=== PATIENT | female | born 1960 | race Caucasian/White ===

== ENCOUNTER → 2020-09-20 09:33 | Outpatient (POV) | payer OTHER, SELFPAY | PROVIDERS: Visit Provider Internal Medicine Nephrology | DX: Z00.00 Encounter for general adult medical examination without abnormal findings (principal) ==

== ENCOUNTER → 2021-02-09 08:40 | Outpatient (CLI) | payer BC, SELFPAY | PROVIDERS: PCP Family Medicine; Visit Provider Nurse Practitioner | DX: Z20.822 Contact with and (suspected) exposure to COVID-19 (principal) | CPT/HCPCS: C9803; U0003; U0005 ==

== ENCOUNTER → 2021-05-07 15:08 | Outpatient (CLI) | payer BC, SELFPAY ==
[2021-05-07 16:25] LABS: Adenovirus,PCR Not Detected (NotDetected); Coronavirus 229E Not Detected (NotDetected); Coronavirus NL63 Not Detected (NotDetected); Coronavirus OC43 Not Detected (NotDetected); Coronovirus HKU1,PCR Not Detected (NotDetected); Human Metapneumovirus Not Detected (NotDetected); Influenza A, PCR Not Detected (NotDetected); Influenza AH1, PCR Not Detected (NotDetected); Rhinovirus/Enterovirus Not Detected (NotDetected)
[2021-05-07 16:26] LABS: Bordetella Pertussis Not Detected (NotDetected); Chlamydophila Pneumoniae, PCR Not Detected (NotDetected); Coronavirus 19, PCR Not Detected (NotDetected); Influenza AH1, 2009 Not Detected (NotDetected); Influenza AH3,PCR Not Detected (NotDetected); Influenza B, PCR Not Detected (NotDetected); Mycoplasma Pneumoniae, PCR Not Detected (NotDetected); Parainfluenza 1, PCR Not Detected (NotDetected); Parainfluenza 3, PCR Not Detected (NotDetected); Parainfluenza 4, PCR Not Detected (NotDetected); Respiratory Syncytial Virus Not Detected (NotDetected)
[2021-05-07 16:35] LABS: Basophils # 0.1 K/mm3 (0-0.2); Basophils % 1.8 % (0.1-2.0); Eosinophils # 0.2 K/mm3 (0.0-0.4); Eosinophils % 2.6 % (0.1-12.0); Hematocrit 34.9 % (37.0-47.0); Hemoglobin 11.2 g/dL (12.2-16.2); Lymphocytes # 1.3 K/mm3 (0.7-4.5); Lymphocytes % 19.9 % (10-50); Mean Corpuscular Hemoglobin 29.7 pg (27.0-31.2); Mean Corpuscular Volume 92.5 fl (81-99); Mean Platelet Volume 8.3 fl (7.4-10.4); Monocytes # 0.3 K/mm3 (0.1-1.0); Monocytes % 3.7 % (1.7-9.3); Neutrophils # 4.9 K/mm3 (1.8-7.8); Platelet Count 351 K/mm3 (142-424); Red Blood Count 3.77 M/mm3 (4.20-5.40); Red Cell Distribution Width 13.9 % (11.5-17.5); White Blood Count 6.8 K/mm3 (4.8-10.8)
[2021-05-07 19:20] LABS: Parainfluenza 2, PCR Detected (NotDetected)
== END ==
PROVIDERS: PCP Family Medicine; Visit Provider Family Medicine
DX: Z20.822 Contact with and (suspected) exposure to COVID-19 (principal); J11.1 Influenza due to unidentified influenza virus with other respiratory manifestations
CPT/HCPCS: 36415; 85025; 87581; 87632; 87798; C9803; U0003; U0005

== ENCOUNTER 2022-03-03 18:52 | Emergency (ER) | payer BC, SELFPAY ==
[2022-03-03 18:54] VITALS: BP 131/67; PULSE 95; RESP 16; TEMP 37.2; O2SAT 97; BMI 42.3
[2022-03-03 21:53] VITALS: BP 0/0; PULSE 0; RESP 0; TEMP -17.7; TEMP 0
== END 2022-03-03 21:55 | disposition left against medical advice (07) ==
LOC: ER 20:40
PROVIDERS: Emergency Provider Emergency Medicine; PCP Family Medicine
DX: M79.605 Pain in left leg (principal); Z53.21 Procedure and treatment not carried out due to patient leaving prior to being seen by health care provider
CPT/HCPCS: 99211

== ENCOUNTER → 2022-05-21 13:19 | Outpatient (CLI) | payer BC, SELFPAY ==
--- NOTE | 2022-05-21 13:23 | MM_ITS ---
PROCEDURE INFORMATION: Exam: Bilateral Screening 3D Mammography Exam date and time: 05/21/2022 1:26 PM Age: 62 years old Clinical indication: Screening examination; Additional info: Baseline screening . History of prior right breast surgery TECHNIQUE: Imaging protocol: Bilateral Screening tomosynthesis and 2D mammography including computer-aided detection (CAD) when performed. COMPARISON: No relevant prior studies available. FINDINGS: MAMMOGRAPHY: Breast composition: The breasts are heterogeneously dense, which may obscure small masses. Mass: Partially obscured 1.0 cm lobulated mass in the outer right breast, anterior depth, best seen on CC frame 18. Partially obscured 0.8 cm mass in the outer left breast, posterior depth, best seen on CC frame 21. Architectural distortion: Questionable area of architectural distortion in the outer right breast, posterior depth, best seen on CC frame 35. Additional questionable area of architectural distortion in the medial right breast, best seen on CC frame 14. These findings could be related to patient's history of prior right breast surgery versus summation artifact. Calcifications: No suspicious calcifications. Asymmetric density: None. Skin thickening: None. Axillary adenopathy: None. IMPRESSION: 1. Recommend right breast spot compression CC/MLO view, full field exaggerated CC lateral view and ultrasound for further evaluation of 3 questionable findings in the right breast: 1) partially obscured lobulated mass in the anterior outer right breast, best seen on CC projection; 2) questionable subtle area of architectural distortion in the anterior inner right breast; and 3) questionable architectural distortion in the posterior outer right breast. These findings could be related to postsurgical scarring however priors are not available for comparison. 2. Recommend left breast spot compression CC/MLO view and ultrasound for further evaluation of a partially obscured 0.8 cm mass in the posterior outer left breast, best seen on CC projection. Of note, patient reports having prior mammograms. Every attempt should be made to obtain prior mammograms for comparison. If/when these prior exams become available for comparison, an addendum will be made, if necessary. ASSESSMENT: BI-RADS Category 0: Incomplete- Need Additional Imaging Evaluation and/or Prior Mammograms for Comparison
== END ==
PROVIDERS: PCP Family Medicine; Visit Provider Family Medicine
DX: Z12.31 Encounter for screening mammogram for malignant neoplasm of breast (principal)
CPT/HCPCS: 77063; 77067

== ENCOUNTER → 2022-06-06 13:46 | Outpatient (CLI) | payer BC, SELFPAY ==
--- NOTE | 2022-06-06 13:51 | MM_ITS ---
PROCEDURE INFORMATION: Exam: US Left Breast, Complete US Right Breast, Complete, Abscess Evaluation MG Bilateral Diagnostic Breast Tomosynthesis Exam date and time: 06/06/2022 1:57 PM Age: 62 years old Clinical indication: Recall on the basis of screening mammogram 05/21/2022 for on the right, partially obscured mass in the outer breast anterior depth and possible architectural distortion in the outer breast posterior depth and medial breast; as well as 4 partially obscured mass in the left outer breast. TECHNIQUE: Imaging protocol: Complete ultrasound of all four quadrants of the Left breast and the retroareolar regions, including ultrasound of the axilla when performed. Right Ultrasound of the breast with image documentation. All quadrants and retroareolar regions evaluated. Exam focused on the search and evaluation for abscess. Exam is an emergent request and a non-BIRADS study. Bilateral Diagnostic tomosynthesis and 2D mammography including computer-aided detection (CAD) when performed. Unilateral or bilateral exam. COMPARISON: MG MM DIG SCREENING MAMM BI W/CAD 05/21/2022 1:26 PM FINDINGS: MAMMOGRAPHY: Additional images on the right show persistent 1.0 cm circumscribed mass/asymmetry in the outer breast posterior depth and no definite persisting architectural distortion in the outer breast posterior depth or medial breast. Additional images on the left show no persistent mass in the outer left breast. ULTRASOUND: Bilateral sonography, all 4 quadrants, retroareolar and axilla. On the right, at 9 o'clock 4 cm from the nipple, oval hypoechoic avascular mass measuring 0.6 x 0.6 x 0.9 cm which corresponds to the mammographic persistent 1.0 cm circumscribed mass/asymmetry in the outer breast posterior depth. Also, at 9 o'clock 3 cm from the nipple, simple cyst measuring 0.5 x 0.5 by 0.7 cm. No other sonographic findings demonstrated. Sonographically unremarkable right axillary lymph node. On the left, at 12 o'clock 3 cm from the nipple, a probable cyst measuring 0.2 by 0.2 x 0.2 cm, too small to characterize fully. At 2 o'clock 3 cm from the nipple, probably deep cyst, may be complicated with low-level echoes measuring 0.8 by 0.8 x 0.3 cm probably corresponds to the mammographic partially obscured mass which effaced in the outer left breast. No other sonographic findings. Sonographically unremarkable left axillary lymph node. IMPRESSION: Suggest six-month follow-up bilateral diagnostic mammogram and targeted bilateral sonography for probably benign masses on the right at 9 o'clock and on the left at 12 o'clock and 2 o'clock, unless otherwise clinically indicated. ASSESSMENT: BI-RADS Category 3: Probably benign
== END ==
PROVIDERS: PCP Family Medicine; Visit Provider Family Medicine
DX: R92.8 Other abnormal and inconclusive findings on diagnostic imaging of breast (principal)
CPT/HCPCS: 76641; 77062; 77066; G0279

== ENCOUNTER → 2022-12-24 12:17 | Outpatient (CLI) | payer BC, SELFPAY ==
--- NOTE | 2022-12-24 12:21 | XR_ITS ---
FINAL REPORT CLINICAL HISTORY: LT KNEE pain FINDINGS: 3 views of the left knee were obtained. There is no acute fracture or dislocation. There are mild degenerative changes. There is no soft tissue abnormality. IMPRESSION: No acute process. Reviewed, Interpreted and Dictated by Brendan Marcano III, MD Transcribed by Khoa Foster Authenticated and [facility]
== END ==
PROVIDERS: PCP Family Medicine; Visit Provider Family Medicine
DX: M25.562 Pain in left knee (principal)
CPT/HCPCS: 73562

== ENCOUNTER → 2023-01-01 11:03 | Outpatient (CLI) | payer OTHER, SELFPAY ==
--- NOTE | 2023-01-01 11:10 | MR_ITS ---
FINAL REPORT CLINICAL HISTORY: LEFT LATERAL KNEE PAIN FINDINGS: Multiplanar MR imaging of the right knee was performed without contrast. Motion artifact is identified on many of the images. There is a possible small tear of the posterior horn of the medial meniscus versus artifact. The lateral meniscus is intact. The anterior and posterior cruciate ligaments are intact. The medial collateral ligament and lateral ligamentous complex are intact. The patellar and quadriceps tendons are intact. There is no evidence of fracture. There is severe patellar chondromalacia with several subchondral cyst. Small joint effusion is seen. The musculature is intact. No soft tissue mass or cyst is identified. IMPRESSION: Possible small tear posterior horn medial meniscus versus artifact. Severe patellar chondromalacia. Reviewed, Interpreted and Dictated by Brendan Marcano III, MD Transcribed by Janeth Ge Authenticated and [facility]
== END ==
PROVIDERS: PCP Family Medicine; Visit Provider Family Medicine
DX: M25.562 Pain in left knee (principal); M25.462 Effusion, left knee; S83.207A Unspecified tear of unspecified meniscus, current injury, left knee, initial encounter
CPT/HCPCS: 73721

== ENCOUNTER → 2023-04-14 09:50 | Outpatient (POV) | payer MEDICARE, SELFPAY ==
--- NOTE | 2023-04-14 10:36 | EXP.PAIN.OV ---
HPI Data of Consult Patient: new to practice Consult date: 04/14/23 Requesting Physician: Nereida Villeda APRN Primary Care Provider: Sarmad Ruiz MD Consult Narrative Reason for consult: Left knee pain History of present illness: Ms. Elaine is a 62 year old female who presents today as a new patient. She is a referral from Walker Villeda's office. Today she rates her pain a 9 out of 10. Patient states her pain is all in her left knee. Patient describes this as a sharp shooting pain that is worse with standing or sitting. Patient states it did all start around December of this year when she was trying to get into a truck and twisted her knee funny. Patient states she immediately had sharp shooting pain and difficulty with ambulating. She states she did go for evaluation and did see Dr. Villeda who stated she had severe arthritis along with a meniscus tear. Patient states that he did try a intra-articular injection however it only provided minimal relief and only lasted 2 weeks. Patient states that he did want her to come to our office and try a different type injection. She stated that at this time he was not recommending surgical intervention. Patient has tried [id number] Tylenol and ibuprofen with minimal relief. Patient denies any previous surgery. Patient has also been prescribed prescription Celebrex and been on it for 2 weeks however she states she has not noticed any additional improvement. Patient is not on any scheduled medications. Patient does state that she is moving to [place] in 2 weeks. Her Shalom has been reviewed and is appropriate. CC: Nereida Villeda APRN [facility] Disclaimer: The information contained in this section may have been updated after the patient was seen, as this information can be updated by other users. Social History Smoking Status: Never smoker alcohol intake: never substance use type: denies use current occupational status: employed Travel in the last 8 weeks: None caffeine: No Review of Systems Review of Systems Review of systems:: pertinent systems reviewed and negative unless documented below Review of systems (narrative): Review of Systems: General: No recent weight changes, no fever, no sleep disturbances Respiratory: No cough, no shortness of air, no recurring pulmonary infections Cardiovascular/peripheral vascular: No chest pain, no palpitations, no edema, no shortness of breath Gastrointestinal: No new onset incontinence, normal bowel movements reported Genitourinary: No new onset incontinence Musculoskeletal: Left knee pain Psychiatric: [Normal mood/affect] Neurological: [Denies weakness in extremities], [denies balance issues] Meds Home Medications and Allergies Home Medications Medication Instructions Recorded Confirmed Type levothyroxine 75 mcg tablet 75 mcg PO DAILY thyroid 07/10/18 03/27/23 History (Synthroid) ropinirole 1 mg tablet (Requip) 1 mg PO QHS RLS 07/10/18 03/27/23 History celecoxib 200 mg capsule (Celebrex) 200 mg PO DAILY knee oa #30 caps 03/27/23 03/27/23 Rx New Prescriptions to Start Prescriptions: Allergies Allergy/AdvReac Type Severity Reaction Status Date / Time No Known Drug Allergies Allergy Unknown Verified 03/27/23 13:50 [NKDA] Objective Narrative: Physical Exam: General: Alert and oriented x3, no acute distress, pleasant and cooperative Lungs: Respirations even and unlabored, symmetrical chest expansion Eyes: PERRL Musculoskeletal: Flexion and extension of left knee somewhat guarded secondary to pain, [antalgic gait noted] Neurological: Speech clear, no gross sensory deficit Additional findings Additional findings: FINDINGS: Multiplanar MR imaging of the right knee was performed without contrast. Motion artifact is identified on many of the images. There is a possible small tear of the posterior horn of the medial meniscus versus artifact. T
[2023-04-14 11:24] VITALS: BP 134/67; PULSE 86; RESP 18; O2SAT 95; BMI 42.0
== END ==
PROVIDERS: PCP Family Medicine; Visit Provider Nurse Practitioner Family
DX: S83.242D Other tear of medial meniscus, current injury, left knee, subsequent encounter (principal); M25.562 Pain in left knee
CPT/HCPCS: 99202; G0463

== ENCOUNTER 2023-05-02 09:38 | Day surgery (SDC) | payer MEDICARE, SELFPAY ==
[2023-05-02 10:10] VITALS: BP 172/74; PULSE 86; O2SAT 97
[2023-05-02 10:11] VITALS: BP 168/85; PULSE 88; RESP 16; TEMP 36.2; O2SAT 98; BMI 42.0
[2023-05-02 10:12] VITALS: BP 172/74; PULSE 87; O2SAT 96
[2023-05-02 10:18] VITALS: BP 150/68; PULSE 81; RESP 16; O2SAT 98
--- NOTE | 2023-05-02 10:49 | EXP.PAIN.PRO ---
Procedure Date: 05/02/23 Time: 10:00 Anesthesiologist:: Savage Magdaleno CRNA Complications:: None Pre-procedure Diagnosis:: DJD left knee. Chronic left knee pain. Post-procedure Diagnosis:: Same. Indications for Procedure:: Patient is a pleasant 63-year-old female comes our clinic today for a left trigger point injections of the left knee as well as intra-articular cortisone. Patient has chronic knee pain she describes as constant, dull, aching. Patient has been told by orthopedics she has chronic osteoarthritis left knee including meniscus tear. Patient has been informed by orthopedics she needs total knee replacement. However, patient wanting to try nonsurgical options. Procedure Details:: Details of the procedure explained the patient. Patient taken procedure and placed in the sitting position. The area of the left knee was cleansed using chlorhexidine's cleansing solution. The left knee was accessed with ease using a 25-gauge 3-1/2 inch needle. After negative aspiration 40 mg of Depo-Medrol +3 cc of 1% lidocaine and 3 cc of 0.25% Marcaine was injected. The left inferior genicular nerve was also blocked with 3 cc of 1% lidocaine. Patient tolerated procedure without difficulty. There are no complications. Plan and Disposition:: Patient tolerated procedure without difficulty. No complications. I did discuss in detail with the patient regarding genicular nerve block might be possible if in fact the intra-articular injection does not provide significant relief.
== END 2023-05-02 10:18 | disposition home or self-care (01) ==
PROVIDERS: PCP Family Medicine; Visit Provider Nurse Anesthetist, Certified Registered
DX: M17.12 Unilateral primary osteoarthritis, left knee (principal); M25.562 Pain in left knee; G89.29 Other chronic pain
CPT/HCPCS: 20610; 64454; J1040

== ENCOUNTER → 2023-05-20 13:14 | Outpatient (POV) | payer MEDICARE, SELFPAY ==
[2023-05-20 13:29] VITALS: BP 147/86; PULSE 95; RESP 18; O2SAT 98; BMI 42.0
--- NOTE | 2023-05-20 13:43 | EXP.PAIN.SOA ---
[facility] Pain Management SOAP Note Subjective:: Patient is a very pleasant 63-year-old female comes our clinic today for follow-up visit after receiving left intra-articular knee injection. Patient reports 10 to 12 days of significant improvement terms of her overall left knee pain. However, her pain is returned essentially in its entirety. She describes the left knee pain as constant, dull, aching, sharp, stabbing. Patient reports having difficulty ambulating due to left knee pain severity. Patient has had 2 intra-articular cortisone shots in the left knee. Patient has been told by orthopedic surgery needs total knee replacement would be her very last option. I discussed in detail with the patient regarding left genicular nerve block with subsequent genicular ablation if in fact necessary. She wishes to proceed. Patient continues taking Celebrex daily. Her Shalom #[id number] is been reviewed and appropriate. Objective:: Patient is awake alert [place] x 3. No acute distress. Flexion-extension cervical lumbar spine normal. Deep tendon reflexes upper and lower extremities normal. Motor strength upper and lower extremities normal. There is no gross sensory deficit. Gait is normal. Assessment:: DJD left knee. Chronic left knee pain. Plan:: We will plan for left knee genicular nerve block. Patient has tried and failed NSAIDs, intra-articular cortisone, physical therapy, home exercise program. [facility] Disclaimer: The information contained in this section may have been updated after the patient was seen, as this information can be updated by other users. Medical History Hypothyroidism Osteoarthritis, knee Restless leg syndrome Family History Other Unknown family medical history Social History Smoking Status: Never smoker alcohol intake: never substance use type: denies use current occupational status: unemployed Travel in the last 8 weeks: None caffeine: No
== END ==
LOC: SC.PAIN 13:15
PROVIDERS: Visit Provider Nurse Anesthetist, Certified Registered
DX: M17.12 Unilateral primary osteoarthritis, left knee (principal); M25.562 Pain in left knee; G89.29 Other chronic pain
CPT/HCPCS: 99212; G0463

== ENCOUNTER 2023-06-24 10:59 | Day surgery (SDC) | payer MEDICARE, SELFPAY ==
[2023-06-24 11:20] VITALS: BP 169/105; PULSE 107; RESP 18; TEMP 36.4; O2SAT 97; BMI 42.0
[2023-06-24 11:22] VITALS: BP 144/69; PULSE 97; RESP 18; O2SAT 97; O2SAT 98
[2023-06-24] MEDS: methylPREDNISolone ACETATE 80MG/ML VIAL 80 MG (11:24)
[2023-06-24] MEDS: BUPIVACAINE 0.25% 10ML INJ 25 MG IJ (11:25)
[2023-06-24] MEDS: LIDOCAINE 1% 5ML PF VIAL 5 ML (11:25)
[2023-06-24 11:33] VITALS: BP 158/63; PULSE 89; RESP 18; O2SAT 97
--- NOTE | 2023-06-24 11:40 | EXP.PAIN.PRO ---
Procedure Date: 06/24/23 Time: 11:30 Anesthesiologist:: Savage Magdaleno CRNA Complications:: None Pre-procedure Diagnosis:: Chronic left knee pain. Small meniscus tear left knee. Arthritis left knee. Post-procedure Diagnosis:: Same. Indications for Procedure:: Patient is a very pleasant 63-year-old female comes our clinic today for trigger point injections of the distal medial and lateral quadriceps tendon and the proximal patellar tendon. Patient has had intra-articular injections at the knee with minimal to no relief. Procedure Details:: Details of the procedure explained the patient. The patient taken procedure room placed in the sitting position. The area over the knee was cleansed using chlorhexidine as a cleansing solution. Using a 25-gauge inch and half needle the distal quadriceps tendon medial and laterally was injected with 5 cc of solution containing 1% lidocaine, 0.25% Marcaine and 40 mg of Depo-Medrol. The proximal patellar tendon was also injected with 5 cc of the same solution. Patient tolerated procedure without difficulty. No complications. Plan and Disposition:: I discussed in detail with the patient regarding orthopedic surgery referral. Patient lives in [facility]. I have given her the name of [place] [facility] in [place]. Specifically, I asked her to request Walker Nam for Ortho evaluation.
== END 2023-06-24 11:33 | disposition home or self-care (01) ==
PROVIDERS: Visit Provider Nurse Anesthetist, Certified Registered
DX: M17.12 Unilateral primary osteoarthritis, left knee (principal); S83.207D Unspecified tear of unspecified meniscus, current injury, left knee, subsequent encounter; M25.562 Pain in left knee; G89.29 Other chronic pain
CPT/HCPCS: 20551; J1040

== ENCOUNTER → 2023-07-11 13:16 | Outpatient (POV) | payer MEDICARE, SELFPAY ==
[2023-07-11 13:38] VITALS: BP 139/73; PULSE 98; RESP 20; O2SAT 95; BMI 42.0
--- NOTE | 2023-07-11 13:58 | A.OFFVIS_ITS ---
[facility] Pain Management SOAP Note Subjective:: Patient is a pleasant 63-year-old female who presents today for follow-up of trigger point injections of her left knee on 06/24/2023. We are currently treating the patient for left knee osteoarthritis: Left knee pain, left knee meniscus tear. Patient rates her pain today at a 5 out of 10. Patient denies any new trauma or injury. She states that she did not notice any improvement following this injection. Patient describes her pain as an aching, throbbing sensation that is worse with increased activity or ambulation. Patient states the pain interferes with her ability perform activities of daily living such as cooking and cleaning. Patient did previously have a intra-articular knee injection done in the past that did provide 100% relief lasting approximately 2 weeks. Patient states she is interested in repeating this procedure if possible. Her Shalom has been reviewed and is appropriate. Review of Systems: General: No recent weight changes, no fever, no sleep disturbances Respiratory: No cough, no shortness of air, no recurring pulmonary infections Cardiovascular/peripheral vascular: No chest pain, no palpitations, no edema, no shortness of breath Gastrointestinal: No new onset incontinence, normal bowel movements reported Genitourinary: No new onset incontinence Musculoskeletal: Left knee pain Psychiatric: [Normal mood/affect] Neurological: [Denies weakness in extremities], [denies balance issues] Objective:: Physical Exam: General: Alert and oriented x3, no acute distress, pleasant and cooperative Lungs: Respirations even and unlabored, symmetrical chest expansion Eyes: PERRL Musculoskeletal: Flexion and extension of left knee somewhat guarded secondary to pain, [antalgic gait noted] Neurological: Speech clear, no gross sensory deficit Assessment:: Osteoarthritis left knee, left knee pain, left knee meniscus tear Plan:: Patient continues to experience significant pain in her left knee with limited range of motion. I have discussed with the patient that she may benefit from repeat intra-articular left knee injection. Risk and benefits were discussed with the patient and she would like to proceed forward with this plan of care. Patient had previously had a intra-articular knee injection that did provide 100% improvement lasting 2 weeks. I will also order the patient a compounded cream. Patient will be scheduled for a left knee intra-articular injection. Patient has been instructed to contact the clinic with any concerns before the next appointment. Dr. Marsh has reviewed this note and agrees with this plan of care. This note was dictated using voice recognition software and make contain errors or omissions. [facility] Disclaimer: The information contained in this section may have been updated after the patient was seen, as this information can be updated by other users. Medical History Hypothyroidism Osteoarthritis, knee Restless leg syndrome Family History Other Unknown family medical history Social History Smoking Status: Never smoker alcohol intake: never substance use type: denies use current occupational status: other Travel in the last 8 weeks: None caffeine: No
== END ==
LOC: SC.PAIN 13:17
PROVIDERS: PCP Family Medicine; Visit Provider Nurse Practitioner Family
DX: M17.12 Unilateral primary osteoarthritis, left knee (principal); M25.562 Pain in left knee; M23.207 Derangement of unspecified meniscus due to old tear or injury, left knee
CPT/HCPCS: 99212; G0463

== ENCOUNTER 2023-08-05 10:47 | Day surgery (SDC) | payer MEDICARE, SELFPAY ==
[2023-08-05 11:06] VITALS: BP 194/88; PULSE 93; RESP 18; TEMP 36.5; O2SAT 99; BMI 42.0
[2023-08-05 11:12] VITALS: BP 176/52; PULSE 86; RESP 18; O2SAT 96
[2023-08-05] MEDS: BUPIVACAINE 0.25% 10ML INJ 25 MG IJ (11:12)
[2023-08-05] MEDS: LIDOCAINE 1% 5ML PF VIAL 5 ML (11:12)
[2023-08-05] MEDS: methylPREDNISolone ACETATE 80MG/ML VIAL 80 MG (11:12)
[2023-08-05 11:13] VITALS: BP 176/52; PULSE 86; RESP 18; O2SAT 96
[2023-08-05 11:20] VITALS: BP 153/71; PULSE 87; RESP 18; O2SAT 99
--- NOTE | 2023-08-05 11:34 | P.PCN_ITS ---
Procedure Date: 08/05/23 Time: 11:05 Anesthesiologist:: Savage Magdaleno CRNA Complications:: None Pre-procedure Diagnosis:: DJD left knee. Chronic left knee pain. Post-procedure Diagnosis:: Same. Indications for Procedure:: Patient is a very pleasant 63-year-old female comes our clinic today for repeat left intra-articular knee injection. Patient reporting 2 weeks significant improvement terms of her overall left knee pain with her previous injection. She describes knee pain as constant, dull, aching. Ambulation intensifies pain to some degree. Flexion-extension intensifies pain as well. Patient asking for orthopedic referral in the [facility] where she lives. I think this is reasonable given the fact the intra-articular injections are not making a significant difference. I recommend to her [place] [facility] on [facility] in [place]. Procedure Details:: Procedure Details: Left intra-articular knee injection Informed consent was obtained risk and benefits of the procedure were explained to the patient. Patient was taken the procedure room left knee was prepped using ChloraPrep. A 25-gauge needle was used to inject 10 mL bupivacaine 0.25% and Depo-Medrol 40 mg into each knee. We did a total of 80 mg Depo-Medrol for both knees. The patient tolerated the procedure well with no complications. Plan and Disposition:: Patient was discharged without incident.
== END 2023-08-05 11:20 | disposition home or self-care (01) ==
PROVIDERS: PCP Family Medicine; Visit Provider Nurse Anesthetist, Certified Registered
DX: M17.12 Unilateral primary osteoarthritis, left knee (principal); M25.562 Pain in left knee; G89.29 Other chronic pain
CPT/HCPCS: 20610; J1040

== ENCOUNTER 2023-08-27 13:57 | Outpatient (POV) | payer MEDICARE, SELFPAY ==
[2023-08-27 13:58] VITALS: BP 153/60; PULSE 84; RESP 18; TEMP 36.9; O2SAT 95; BMI 42.0
--- NOTE | 2023-08-27 15:58 | EXP.PAIN.SOA ---
[facility] Pain Management SOAP Note Subjective:: Patient is a pleasant 63-year-old female who presents today for follow-up of left intra-articular injection on 08/05/2023. Patient rates her pain today a 2 out of 10 on the left knee and a 15 out of 10 on the right knee. Patient states that she has had at least 50% improvement following this injection and feels like it is still continuing to provide additional relief. Patient does state that today most of her pain is related to her right knee. Patient denies any new trauma or injury. She states that it is causing a constant sharp shooting pain in her knee that is worse with increased activity or ambulation. Patient states that it feels very much like how her left knee felt with the meniscus tear. Patient states that she has not had any prior surgery on this side. She states the pain does interfere with her ability to perform activities of daily living such as cooking and cleaning. She is interested in any help we may be able to provide. Her Shalom has been reviewed and is appropriate. Review of Systems: General: No recent weight changes, no fever, no sleep disturbances Respiratory: No cough, no shortness of air, no recurring pulmonary infections Cardiovascular/peripheral vascular: No chest pain, no palpitations, no edema, no shortness of breath Gastrointestinal: No new onset incontinence, normal bowel movements reported Genitourinary: No new onset incontinence Musculoskeletal: Right knee pain Psychiatric: [Normal mood/affect] Neurological: [Denies weakness in extremities], [denies balance issues] Objective:: Physical Exam: General: Alert and oriented x3, no acute distress, pleasant and cooperative Lungs: Respirations even and unlabored, symmetrical chest expansion Eyes: PERRL Musculoskeletal: Flexion and extension of right knee somewhat guarded secondary to pain, [antalgic gait noted] Neurological: Speech clear, no gross sensory deficit Assessment:: Osteoarthritis left knee, bilateral knee pain, left knee meniscus tear Plan:: Patient is experiencing worsening pain in her right knee with limited range of motion. I will order x-ray imaging as well as MRI without contrast of her right knee. Patient is currently living in [place] and would like the advanced imaging ordered at a location that year. I have also discussed with the patient due to some of her pain may be related to the arthritis that she may benefit from a daily medication for anti-inflammation. Patient denies any heart or kidney issues. We will send in a prescription of Celebrex 100 mg twice a day and provide a 2-week supply of this medication. Patient has been counseled to contact our office if this does provide additional relief for additional refills. Patient was told to discontinue all other NSAIDs while taking this medication and to take it with food to minimize GI upset. Patient acknowledges understanding of this. Patient was also discussed that she may benefit from an intra-articular knee injection. Risk and benefits were discussed with patient and she would like to proceed forward with this plan of care. We will schedule the patient for a right intra-articular knee injection. Patient has been instructed to contact the clinic with any concerns before the next appointment. Dr. Marsh has reviewed this note and agrees with this plan of care. This note was dictated using voice recognition software and make contain errors or omissions. [facility] Disclaimer: The information contained in this section may have been updated after the patient was seen, as this information can be updated by other users. Medical History Hypothyroidism Restless leg syndrome Osteoarthritis, knee Family History Other Unknown family medical history Social History Smoking Status: Never smoker alcohol intake: never substance use type: denies use current occupational status: retired Travel in the last 8 weeks: None caffeine: No
--- NOTE | 2023-08-27 16:12 | XR_ITS ---
PROCEDURE INFORMATION: Exam: XR Right Knee Exam date and time: 08/27/2023 4:15 PM Age: 63 years old Clinical indication: Pain; Knee; Right; Additional info: Right knee pain TECHNIQUE: Imaging protocol: Radiologic exam of the right knee. Views: 3 views. COMPARISON: No relevant prior studies available. FINDINGS: Bones/joints: Normal. No fracture evident Soft tissues: Normal. IMPRESSION: No acute findings.
== END 2023-08-27 23:59 | disposition home or self-care (01) ==
PROVIDERS: PCP Family Medicine; Visit Provider Nurse Practitioner Family
DX: M17.12 Unilateral primary osteoarthritis, left knee (principal); M25.561 Pain in right knee; M25.562 Pain in left knee; S83.207D Unspecified tear of unspecified meniscus, current injury, left knee, subsequent encounter
CPT/HCPCS: 73562; 99212; G0463

== ENCOUNTER 2023-09-12 12:53 | Outpatient (CLI) | payer MEDICARE, SELFPAY ==
--- NOTE | 2023-09-12 12:58 | MR_ITS ---
FINAL REPORT CLINICAL HISTORY: RIGHT KNEE PAIN COMPARISON: 01/01/2023 FINDINGS: Multi planar MR imaging was performed of the right knee. The anterior and posterior cruciate ligaments are intact. The quadriceps and patellar tendons are intact. There is again noted to be minimal signal in the posterior horn of the medial meniscus which may represent a subtle, minimal tear. This is well-seen on image 17 of series 4 and appears similar to the prior exam. The medial and lateral collateral ligaments appear intact. The medial and lateral retinacula appear intact. There is a small joint effusion. There is an osteochondral lesion along the undersurface of the patella measuring 9 mm. IMPRESSION: Redemonstration of a questionable tear of the posterior horn of the medial meniscus. 9 mm osteochondral lesion. Reviewed, Interpreted and Dictated by Stephan Gu MD Transcribed by Kayce Hardy Authenticated and [facility]
== END 2023-09-12 23:59 | disposition home or self-care (01) ==
LOC: RAD 12:54
PROVIDERS: PCP Family Medicine; Visit Provider Nurse Practitioner Family
DX: M25.561 Pain in right knee (principal)
CPT/HCPCS: 73721

== ENCOUNTER 2023-10-30 17:43 | Observation (INO) | payer MEDICARE, SELFPAY ==
[2023-10-30 17:43] VITALS: BP 141/56; PULSE 104; RESP 15; TEMP 37.5; O2SAT 95; BMI 42.0
--- NOTE | 2023-10-30 17:53 | XR_ITS ---
PROCEDURE INFORMATION: Exam: XR Right Knee Exam date and time: 10/30/2023 6:07 PM Age: 63 years old Clinical indication: Injury or trauma; Fall; Swelling (edema); Knee; Bilateral TECHNIQUE: Imaging protocol: Radiologic exam of the right knee. Views: 3 views. COMPARISON: No relevant prior studies available. FINDINGS: Bones/joints: Multiple views were obtained. The osseous structures appear intact with no evidence of acute fracture, dislocation, or malalignment. Degenerative changes are noted, consistent with age-related wear and tear. Joint spaces are generally preserved. No abnormal bone density or destructive lesions are noted. Soft tissues: Soft tissue swelling is observed, warranting further clinical correlation. IMPRESSION: At the time of imaging, the skeletal radiograph demonstrates no acute osseous abnormalities but shows signs of degenerative changes and soft tissue swelling.
--- NOTE | 2023-10-30 17:53 | XR_ITS ---
PROCEDURE INFORMATION: Exam: XR Left Hand Exam date and time: 10/30/2023 6:07 PM Age: 63 years old Clinical indication: Injury or trauma; Fall; Wound; Left; Little finger; Additional info: L volar 5th mcp trauma and laceration TECHNIQUE: Imaging protocol: Radiologic exam of the left hand. Views: 3 or more views. COMPARISON: No relevant prior studies available. FINDINGS: Bones/joints: No acute osseous injury is identified. Soft tissues: There is a tiny radiopaque density projecting in the soft tissues of the 4th interspace, correlate for any debris. There is mild soft tissue swelling. IMPRESSION: 1. There is a tiny radiopaque density projecting in the soft tissues of the 4th interspace, correlate for any debris. 2. No acute osseous injury.
--- NOTE | 2023-10-30 17:54 | XR_ITS ---
PROCEDURE INFORMATION: Exam: XR Left Knee Exam date and time: 10/30/2023 6:07 PM Age: 63 years old Clinical indication: Injury or trauma; Fall; Swelling (edema); Knee; Bilateral TECHNIQUE: Imaging protocol: Radiologic exam of the left knee. Views: 3 views. COMPARISON: MR KNEE LT WO CON 09/12/2023 12:54 PM FINDINGS: Bones/joints: There is tricompartmental osteoarthritis of the knee with loss of joint space, subchondral sclerosis, and productive changes. The osseous structures are intact, with no signs of acute fracture, dislocation, or malalignment. There is no evidence of abnormal bone density or destructive lesions. Soft tissues: The soft tissues appear within normal limits. IMPRESSION: At the time of imaging, the study shows no acute osseous abnormalities but does reveal signs of tricompartmental osteoarthritis.
--- NOTE | 2023-10-30 17:59 | ED_ITS ---
Discharge Plan Disposition Patient Disposition: Home, Self-Care Prescriptions Prescriptions: New cephalexin 500 mg capsule 500 mg PO BID 5 Days Qty: 10 0RF No Action levothyroxine [Synthroid] 75 mcg tablet 75 mcg PO DAILY ropinirole [Requip] 1 mg tablet 1 mg PO QHS celecoxib [Celebrex] 200 mg capsule 200 mg PO DAILY Qty: 30 2RF celecoxib [Celebrex] 100 mg capsule 100 mg PO BID Qty: 60 0RF celecoxib 100 mg capsule 100 mg PO BID Qty: 60 0RF Referrals Follow up/Referrals: Darin Villeda DO [Staff Physician] - See instructions Provider,Referral, [Primary Care Provider] - See instructions Activity Restrictions/Add. Instructions Additional Instructions/Restrictions: At this time is felt you are safe to be discharged home. If new or worsening symptoms please do not hesitate to return the emergency department. Please take antibiotics as prescribed and call and schedule appointment with Dr. Villeda for your knee pain as well as to evaluate your laceration. Your sutures will be able to come out in approximately 12 days. For optimal scar healing use vitamin E lotion. Just because your x-rays did not show any fracture does not mean you do not have any damage to the ligaments or meniscus in your knee. Please bear weight as tolerated until you see Dr. Villeda and use your knee immobilizer intermittently and walker at home as discussed. Please range her knee without bearing significant weight multiple times a day to prevent blood clot formation. For pain please take Tylenol and ibuprofen as needed. Clinical Impressions Clinical Impression: Bilateral knee pain, Fall, Laceration of left palm, Paresthesia of finger Discharge ED Provider: Baljeet Moses General Adult HPI <Baljeet Moses MD - Last Filed: 10/30/23 20:23> General Chief complaint: Fall Stated complaint: fall Time Seen by Provider: 10/30/23 17:45 Mode of Arrival: EMS Source of Information: Patient and EMS Limitations: No Limitations Description of Symptoms (Recalled from ER Triage Doc. by RN): pt reports she was walking, tripped over a screw that was sticking up out of the concrete. pt has bilateral knee pain, right worse than left. pt does have laceration to left hand from bracing impact of fall. pt did not hit head, no LOC History of Present Illness HPI narrative: Patient is a 63-year-old female with past medical history described above who presents to the emergency department for evaluation traumatic injury sustained in a fall. Patient tripped over a screw on her deck resulting in injury to her left volar palm which was bleeding and she is worried need stitches. She also fell on both of her knees and her right knee is hurting worse than her left. Denies hitting her head, other trauma, anticoagulants. Tdap not up-to-date. Related Data Home Medications Medication Instructions Recorded Confirmed levothyroxine 75 mcg tablet 75 mcg PO DAILY thyroid 07/10/18 09/30/23 (Synthroid) ropinirole 1 mg tablet (Requip) 1 mg PO QHS RLS 07/10/18 09/30/23 Previous Rx's Medication Instructions Recorded celecoxib 200 mg capsule (Celebrex) 200 mg PO DAILY knee oa #30 caps 03/27/23 celecoxib 100 mg capsule (Celebrex) 100 mg PO BID #60 caps 09/22/23 celecoxib 100 mg capsule 100 mg PO BID #60 caps 10/29/23 cephalexin 500 mg capsule 500 mg PO BID infection 10/30/23 prophylaxis 5 days #10 caps Allergies Allergy/AdvReac Type Severity Reaction Status Date / Time No Known Drug Allergies Allergy Unknown Verified 09/30/23 10:28 [NKDA] [facility] <Baljeet Moses MD - Last Filed: 10/30/23 20:23> [facility] Disclaimer: The information contained in this section may have been updated after the patient was seen, as this information can be updated by other users. Medical History Hypothyroidism Restless leg syndrome Osteoarthritis, knee LEFT Family History Other Unknown family medical history Social History Smoking Status: Never smoker alcohol intake: never substance use type: denies use current occupational status: retired Travel in the last 8 weeks: None caffeine: No <Baljeet Moses MD - Last Filed: 10/30/23 20:23> ROS Obtained: Yes Systems reviewed as appropriate & no additional complaints except as documented Physical Exam <Baljeet Moses MD - Last Filed: 10/30/23 20:23> General General appearance: alert and in no apparent distress Head Head exam: atraumatic and normocephalic Eye Eye exam: Present PERRL ENT ENT exam: Present mucous membranes moist Neck Neck exam: Present normal inspection Chest Chest inspection: Present normal inspection and symmetric chest wall rise Respiratory Respiratory exam: Present normal lung sounds bilaterally; Absent respiratory distress Cardiovascular Cardiovascular exam: Present regular rate and normal rhythm Abdominal Exam Abdominal exam: Present soft; Absent tenderness Extremities Exam Extremities exam: Present tenderness (Bilateral knees, extensor mechanism intact bilaterally.) and other (7 cm curvilinear laceration over the volar left palm about the fifth MCP joint that is hemostatic. Full active and passive range of motion at the CMC, MCP, PIP, DIP joints. Sensation and capillary refill pres erved all digits.) Neurological Exam Neurological exam: Present alert Psychiatric Psychiatric exam: Present normal affect Skin Skin exam: Present warm and dry Medical Decision Making <Baljeet Moses MD - Last Filed: 10/30/23 20:23> Shalom Inquiry Pt receiving controlled substance: No Vital Signs: 10/30/23 17:43 Temperature 99.5 F Temperature Source Oral Pulse Rate [Left Radial] 104 H Respiratory Rate 15 Blood Pressure [Right Arm] 141/56 H Blood Pressure Mean [Right Arm] 84 02 Sat by Pulse Oximetry 95 Oxygen Delivery Method Room Air Orders (Tests/Meds): ED MEDICATIONS Discontinued Medications Generic Name Dose Route Start Last Admin Trade Name Cucoq PRN Reason Stop Dose Admin Acetaminophen 1,000 mg 10/30/23 19:47 10/30/23 20:06 Acetaminophen 500mg Tab PO 10/30/23 19:48 1,000 mg ONCE ONE Administration Cocaine HCl 1 ml 10/30/23 18:27 10/30/23 18:34 Cocaine 4% Topical Soln 4ml Bottle TP 10/30/23 18:28 1 ml ONCE ONE Administration Epinephrine HCl 1 mg 10/30/23 18:27 10/30/23 18:34 Epinephrine 1 Mg/Ml Ampul TP 10/30/23 18:28 1 mg ONCE ONE Administration Lidocaine HCl 1 ml 10/30/23 18:27 10/30/23 18:35 Lidocaine 2% Urojet 10ml TP 10/30/23 18:28 1 ml ONCE ONE Administration Lidocaine HCl 20 ml 10/30/23 19:30 10/30/23 19:46 Lidocaine 1% 20ml Mdv SQ 10/30/23 19:31 Not Given ONCE ONE Lidocaine/Epinephrine 20 ml 10/30/23 19:32 10/30/23 19:33 Lidocaine 1% W/Epi 1:100,000 20ml Vial SQ 10/30/23 19:33 20 ml ONCE ONE Administration Oxycodone HCl 5 mg 10/30/23 19:47 10/30/23 20:06 Oxycodone 5mg Immediate Release Tablet PO 10/30/23 19:48 5 mg ONCE ONE Administration Tetanus/Reduced Diphtheria/Acell Pertussis 0.5 ml 10/30/23 17:53 10/30/23 18:06 Tet/Diphth/Pert-Adult 0.5ml Syringe IM 10/30/23 17:54 0.5 ml .ONCE ONE Administration ORDERS Category Date Time Status CT knee RT wo con Stat Cat Scan 10/30/23 19:28 Completed Hand XR left minimum 3 views [XR hand LT min 3V] Stat Exams 10/30/23 17:53 Completed Knee XR left 3 views [XR knee LT 3V] Stat Exams 10/30/23 17:54 Completed Knee XR right 3 views [XR knee RT 3V] Stat Exams 10/30/23 17:53 Completed Medical Decision Narrative: In summary patient is a 63-year-old female with past medical history described above who presents emergency department for evaluation of traumatic injury sustained in a fall. Patient is hemodynamically stable nontoxic-appearing upon arrival, afebrile. Tdap will be updated. Differential includes fracture, isolated laceration, among others. Based on history and physical exam limited trauma survey will be conducted with plain film of left hand bilateral knees. Patient does have intact sensation distally however it feels tingly, this may be partial nerve transection of the lateral aspect versus neuropraxia either way no emergent intervention from that standpoint. Intracranial imaging was considered however no traumatic head injury or anticoagulation will be deferred. Informal interpretation of the x-rays shows no significant dislocation or fracture. F ormal read shows no fracture. With regards to the hand x-ray formal read shows tiny radiopaque density projecting in the soft tissue of the fourth interspace, wound underwent primary repair with aggressive irrigation. Patient tolerated the procedure well. Upon repeat evaluation patient had continued severe right knee pain for which occult fracture was a concern therefore noncontrasted CT scan was underwent which shows no acute fracture. Given this patient has a walker and a knee immobilizer at home that she will use with intermittent range of motion of her knee and limited weightbearing as tolerated until she is able to follow-up with Dr. Villeda. Patient was given return precautions. Procedure: Procedure performed by Justin López supervised by Lai Moses. Metacarpal block and ring block performed with lidocaine 1% with epinephrine, approximately 10 cc with success. Wound was irrigated with Hibiclens and 2 L of sterile water given wound was contaminated. Closure of 7 cm deep laceration was closed with 4-0 Prolene in a simple interrupted fashion, number of sutures placed was 14. Patient tolerated the procedure well. There were no immediate complications. <SHERRI Moreno - Last Filed: 10/30/23 19:28> Vital Signs: 10/30/23 17:43 Temperature 99.5 F Temperature Source Oral Pulse Rate [Left Radial] 104 H Respiratory Rate 15 Blood Pressure [Right Arm] 141/56 H Blood Pressure Mean [Right Arm] 84 02 Sat by Pulse Oximetry 95 Oxygen Delivery Method Room Air Orders (Tests/Meds): ED MEDICATIONS Discontinued Medications Generic Name Dose Route Start Last Admin Trade Name Freq PRN Reason Stop Dose Admin Acetaminophen 1,000 mg 10/30/23 19:47 10/30/23 20:06 Acetaminophen 500mg Tab PO 10/30/23 19:48 1,000 mg ONCE ONE Administration Cocaine HCl 1 ml 10/30/23 18:27 10/30/23 18:34 Cocaine 4% Topical Soln 4ml Bottle TP 10/30/23 18:28 1 ml ONCE ONE Administration Epinephrine HCl 1 mg 10/30/23 18:27 10/30/23 18:34 Epinephrine 1 Mg/Ml Ampul TP 10/30/23 18:28 1 mg ONCE ONE Administration Lidocaine HCl 1 ml 10/30/23 18:27 10/30/23 18:35 Lidocaine 2% Urojet 10ml TP 10/30/23 18:28 1 ml ONCE ONE Administration Lidocaine HCl 20 ml 10/30/23 19:30 10/30/23 19:46 Lidocaine 1% 20ml Mdv SQ 10/30/23 19:31 Not Given ONCE ONE Lidocaine/Epinephrine 20 ml 10/30/23 19:32 10/30/23 19:33 Lidocaine 1% W/Epi 1:100,000 20ml Vial SQ 10/30/23 19:33 20 ml ONCE ONE Administration Oxycodone HCl 5 mg 10/30/23 19:47 10/30/23 20:06 Oxycodone 5mg Immediate Release Tablet PO 10/30/23 19:48 5 mg ONCE ONE Administration Tetanus/Reduced Diphtheria/Acell Pertussis 0.5 ml 10/30/23 17:53 10/30/23 18:06 Tet/Diphth/Pert-Adult 0.5ml Syringe IM 10/30/23 17:54 0.5 ml .ONCE ONE Administration ORDERS Category Date Time Status CT knee RT wo con Stat Cat Scan 10/30/23 19:28 Completed Hand XR left minimum 3 views [XR hand LT min 3V] Stat Exams 10/30/23 17:53 Completed Knee XR left 3 views [XR knee LT 3V] Stat Exams 10/30/23 17:54 Completed Knee XR right 3 views [XR knee RT 3V] Stat Exams 10/30/23 17:53 Completed Critical Care <SHERRI Moreno - Last Filed: 10/30/23 19:28> Critical Care Time Critical Care Time: No
[2023-10-30] MEDS: TET/DIPHTH/PERT-ADULT 0.5ML SYRINGE 0.5 ML IM (18:06)
[2023-10-30] MEDS: EPINEPHrine 1 MG/ML AMPUL TP (18:34)
[2023-10-30] MEDS: COCAINE 4% TOPICAL SOLN 4ML BOTTLE 1 ML TP (18:34)
[2023-10-30] MEDS: LIDOCAINE 2% UROJET 10ML TP (18:35)
--- NOTE | 2023-10-30 19:28 | CT_ITS ---
PROCEDURE INFORMATION: Exam: CT Right Lower Extremity Without Contrast, Knee Exam date and time: 10/30/2023 7:49 PM Age: 63 years old Clinical indication: Injury or trauma; Fall; Swelling (edema); Knee; Right; Additional info: Fall, severe pain TECHNIQUE: Imaging protocol: CT of the right lower extremity without contrast was performed. Exam focused on the knee. Radiation optimization: All CT scans at this facility use at least one of these dose optimization techniques: automated exposure control; mA and/or kV adjustment per patient size (includes targeted exams where dose is matched to clinical indication); or iterative reconstruction. COMPARISON: CR XR KNEE RT 3V 10/30/2023 6:07 PM FINDINGS: Bones/joints: Anatomic alignment is maintained. No acute fracture. Tricompartment marginal osteophytes. No suprapatellar effusion. No significant joint space narrowing. Soft tissues: Mild soft tissue edema about the knee. IMPRESSION: 1. No acute fracture. Recommend correlation with history/physical exam clinical concern persists consider further evaluation with MRI. 2. Soft tissue edema about the knee.
[2023-10-30] MEDS: LIDOCAINE 1% W/EPI 1:100,000 20ML VIAL 20 ML SQ (19:33)
[2023-10-30] MEDS: ACETAMINOPHEN 500MG TAB 1000 MG PO (20:06)
[2023-10-30] MEDS: OXYCODONE 5MG IMMEDIATE RELEASE TABLET 5 MG PO (20:06)
--- NOTE | 2023-10-30 20:11 | PC.NURSE ---
Assisted patient with repositioning in bed. Patient requested something to eat, confirmed with provider that patient could PO. Provided patient with sandwich, chips, and drink at this time.
--- NOTE | 2023-10-30 20:43 | PC.NURSE ---
Report called to Preethi AQUINO
[2023-10-30 20:54] VITALS: BP 148/86; PULSE 98; RESP 18; TEMP 36.7; O2SAT 97
[2023-10-30 21:00] VITALS: O2SAT 95
--- NOTE | 2023-10-30 21:33 | P.HP_ITS ---
History of Present Illness *Admission Date: 10/30/23 *Reason for visit:: Mechanical fall *History of present illness: This is a 63-year-old female with past medical history of severe osteoarthritis in her knees, presents to the emergency department today after tripping and falling. She reports landing on her right knee but also cutting her left hand in the process. She denies any dizziness, chest pain or palpitations prior to the fall. States that she has been in her normal state of health. Denies any cough, congestion, fever. CT imaging of her right knee negative for any acute infection but significant laceration to her left fifth MCP. 14 sutures required for closure. Patient was attempted to be discharged in the hospital but patient is having difficulty bearing weight on her acutely lacerated left hand. Patient uses a walker at home at baseline. It was deemed that she would likely benefit from PT OT and pain control overnight. She is admitted to hospital service for [facility] Disclaimer: The information contained in this section may have been updated after the patient was seen, as this information can be updated by other users. Medical History Hypothyroidism Restless leg syndrome Osteoarthritis, knee LEFT Family History Other Unknown family medical history Social History (Updated 10/30/23 @ 21:29 by Preethi Luke RN) Smoking Status: Never smoker alcohol intake: never substance use type: denies use current occupational status: retired Travel in the last 8 weeks: None caffeine: No Review of Systems Review of Systems Review of systems (narrative): All negative except for HPI Meds Home Medications and Allergies Home Medications Medication Instructions Recorded Confirmed Type celecoxib 100 mg capsule (Celebrex) 100 mg PO BID #60 caps 09/22/23 10/30/23 Rx levothyroxine 300 mcg tablet 300 mcg PO DAILY 10/30/23 10/30/23 History oxycodone-acetaminophen 7.5 mg-325 1 tab PO Q6HP PRN Breakthru Severe 10/31/23 Rx mg tablet Pain (7-10) 2 days #8 tabs ropinirole 4 mg tablet 4 mg PO TID 10/31/23 10/31/23 History New Prescriptions to Start Prescriptions: oxycodone-acetaminophen Kevin,Irfan Allergies Allergy/AdvReac Type Severity Reaction Status Date / Time No Known Drug Allergies Allergy Unknown Verified 10/30/23 21:05 [NKDA] Exam Data for Last 24 hours Vital signs and Labs for Last 24 Hours: Temp Pulse Resp BP Pulse Ox O2 Del Method 98.1 F 98 H 18 148/86 H 95 Room Air 10/30/23 20:54 10/30/23 20:54 10/30/23 20:54 10/30/23 20:54 10/30/23 17:43 10/30/23 20:54 I & O for Last 24 hours: Intake & Output 10/27/23 10/28/23 10/29/23 10/30/23 23:59 23:59 23:59 23:59 Weight 129.274 kg Constitutional Constitutional: no acute distress *Routine HEENT Exam Head: Present normocephalic Eye: Present EOMI and PERRL ENT: Present mucous membranes moist *Routine Neck Exam Neck: Present supple; Absent lymphadenopathy *Routine Respiratory Exam Respiratory: Present CTA bilaterally *Routine Cardiovascular Exam Cardiovascular: Present RRR *Routine Abdominal Exam Abdominal: Present soft and normoactive bowel sounds; Absent tenderness *Routine Rectal Exam Rectal:: deferred *Routine Genitalia Exam Genitalia:: deferred *Routine Extremities Exam Comments: ROM difficult to right lower extremity secondary to acute injury. Ecchymosis noted. *Routine Skin Exam Comments: Ecchymosis to right knee and right sagastume. Laceration to the left fifth MCP *Routine Neurological Exam Neurological: Present alert and oriented X3 Assessment and Plan *Assessment and plan (1) Laceration of left palm: Status: Acute Qualifiers: Encounter type: initial encounter Qualified Code(s): S61.412A - Laceration without foreign body of left hand, initial encounter Category: Medical Code(s): S61.412A - Laceration without foreign body of left hand, initial encounter (2) Fall: Status: Acute Qualifiers: Encounter type: initial encounter Qualified Code(s): W19.XXXA - Unspecified fall, initial encounter Category: Medical Code(s): W19.XXXA - Unspecified fall, initial encounter (3) Right leg pain: Status: Acute Category: Medical Code(s): M79.604 - Pain in right leg Plan Admit to medicine #Laceration left palm Local wound care #Fall #Right lower extremity pain Patient typically ambulates with a walker at home and is having difficulty bearing weight secondary to the left hand/palm laceration and increased right lower extremity pain Anti-inflammatories and ice of the right lower extremity PT and OT DVT PPx Lovenox Full code Attending attestation Patient was seen and evaluated at the bedside myself, agree with MAYURI note.
[2023-10-30] MEDS: OXYCODONE 7.5MG W/APAP 325MG TABLET 1 EACH PO (22:15)
[2023-10-31 03:36] LABS: Microscopic, Urine URINE MICROSCOPIC (MICROSCOPIC)
[2023-10-31 03:38] LABS: Appearance,Urine Cloudy (Clear); Bilirubin,Urine Negative (Negative); Blood, Urine Negative (Negative); Color,Urine YELLOW (Yellow); Glucose,Urine (UA) Negative (Negative); Ketones,Urine Negative (Negative); Leukocyte Esterase,Urine 1+ (Negative); Nitrate,Urine POSITIVE (Negative); Protein,Urine TRACE (Negative); Specific Gravity, Urine 1.025 (1.005-1.030); Urobilinogen,Urine 0.2 EU/dl (0.2)
[2023-10-31 03:50] LABS: Bacteria,Urine 2+ /lpf; Mucus,Urine 1+ /lpf; WBC,Urine 50-100 #/hpf (0-3)
[2023-10-31 04:00] VITALS: BP 147/78; PULSE 75; RESP 18; TEMP 36.8; O2SAT 98; BMI 42.2
[2023-10-31] MEDS: OXYCODONE 7.5MG W/APAP 325MG TABLET 1 EACH PO (04:37)
--- NOTE | 2023-10-31 05:40 | PC.NURSE ---
DRANK APPLE JUICE AND BECAME NAUSEATED AND VOMITED X 1, NAUSEA SUBSIDED. MEDICATED X 2 FOR PAIN IN LEFT HAND AND RIGHT KNEE. pERCOCET 7.5/325MG 1 TAB Q 6 HR PRN EFFECTIVE AT THIS TIME. NO IV ACCESS. BSC 2 ASSIST. DRSG TO LEFT HAND C/D/I, FLORENCE WRAP INTACT TO RIGHT KNEE.
--- NOTE | 2023-10-31 06:12 | PC.NURSE ---
U/A POSSITIVE FOR UTI. CULTURES PENDING. RESHMA ROCA NOTIFIED. #20 G IV PLACED RAC X 1 STICK AND S.L. PENDING POSSIBLE IVAB.
[2023-10-31] MEDS: CEFTRIAXONE SODIUM 1 GM in 0.9 % SODIUM CHLORIDE 50 ML IV (06:58)
--- NOTE | 2023-10-31 07:37 | HMH.PHAINT1 ---
Pharmacy Intervention Comments: HOME MEDICATION LIST VERIFIED USING LIST FROM OUTPATIENT PHARMACY
[2023-10-31 07:41] VITALS: BP 136/78; PULSE 84; RESP 18; TEMP 36.7; O2SAT 96
--- NOTE | 2023-10-31 08:05 | HMH.PTEV ---
Physical Therapy Evaluation Rehab PT IP Evaluation Start: 10/30/23 20:32 Freq: ONCE Status: Active Protocol: Document 10/31/23 07:31 OLIVIER (Rec: 10/31/23 08:05 OLIVIER [email or web address]) Subjective/History History History Per H&P: This is a 63-year-old female with past medical history of severe osteoarthritis in her knees, presents to the emergency department today after tripping and falling. She reports landing on her right knee but also cutting her left hand in the process. She denies any dizziness, chest pain or palpitations prior to the fall. States that she has been in her normal state of health. Denies any cough, congestion, fever. CT imaging of her right knee negative for any acute infection but significant laceration to her left fifth MCP. 14 sutures required for closure. Patient was attempted to be discharged in the hospital but patient is having difficulty bearing weight on her acutely lacerated left hand. Patient uses a walker at home at baseline. It was deemed that she would likely benefit from PT OT and pain control overnight. Subjective Subjective Pt was IND prior to admission. No AD use but owns a cane and RW. Driving prior. Lives with brother in single-story home. Denies history of falls besides the one that brought her to [facility]. Pt is retired. Brother is able to assist throughout the day if needed. New diagnosis of cancer in past 12 No months? Rehab PT IP Eval Objective Appearance Patient Behavior Appropriate,Cooperative Patient Orientation Person,Situation Difficulty following instructions none Speech Pattern Clear Ambulation Patient Able to Ambulate Yes Ambulation Observation IP General Gait Pattern Observation Antalgic Gait Ambulation Distance (feet) 15 Ambulation Assistive Device Platform Walker Ambulation Ability Contact Guard/Hand Hold Balance Ability to Arise Able, uses arms to help Sitting Balance Steady, safe Standing Balance Steady, wide stance Transfers Bed Transfer Ability Supervision/Stand by Sit to Stand Bed Transfer Ability Minimal x 1 (25% assist) Rehab PT IP prob,goals,plan Problems Date of Evaluation: 10/31/23 PT IP Problems Transfers,Gait,Balance,Safety Rehab Potential Rehab Potential Good Equipment Needs Assistive Devices Platform Walker Plan PT Intervention Plan Transfers,Gait,Balance Other Intervention Plan 1-2 times PT Plan Frequency Daily Duration LOS Discharge Goals Bed Transfer Ability Independent Sit to Stand Chair Transfer Ability Contact Guard/Hand Hold Ambulation Assistive Device Platform Walker Ambulation Distance (feet) 25 Discharge Plan PT Discharge Plan Initial physical therapy evaluation performed. Patient presents below baseline at this time in functional mobility, transfers, gait, and strength. Pt would benefit from skilled PT while at [facility] to prevent further functional decline and maximize safety with mobility. Pt safe to d/c home when deemed medically necessary d/t current level of mobility, home set-up, and family support. PT recommending home health PT services to address deficits. Pt would benefit from platform RW to maximize safety with mobility. Eval Complexity Eval Charge Codes 74086 - Low Complexity PHYSICIAN CERTIFICATION: I certify the specified therapy services for Maggi Elaine are required, authorized, and reviewed every 30 days.
[2023-10-31] MEDS: CELECOXIB 100MG CAPSULE 100 MG PO (09:03)
[2023-10-31] MEDS: LEVOTHYROXINE 150MCG (0.15MG)TAB 300 MCG PO (09:03)
--- NOTE | 2023-10-31 11:14 | CARE MANAGER ---
Per PT eval, patient would benefit from a platform walker as she normally ambulated with a walker and now has a hand wound with 14 stitches. Spoke with patient who is agreeable with Jose Luis providing walker. Order/clinical faxed and plan is for delivery prior to discharge home.
--- NOTE | 2023-10-31 15:32 | EXP.DC.SUM ---
General Admission date:: 10/30/23 Discharge date: 10/31/23 HPI HPI HPI: This is a 63-year-old female with past medical history of severe osteoarthritis in her knees, presents to the emergency department today after tripping and falling. She reports landing on her right knee but also cutting her left hand in the process. She denies any dizziness, chest pain or palpitations prior to the fall. States that she has been in her normal state of health. Denies any cough, congestion, fever. CT imaging of her right knee negative for any acute infection but significant laceration to her left fifth MCP. 14 sutures required for closure. Patient was attempted to be discharged in the hospital but patient is having difficulty bearing weight on her acutely lacerated left hand. Patient uses a walker at home at baseline. It was deemed that she would likely benefit from PT OT and pain control overnight. She is admitted to hospital service for Hospital Course Hospital Course Hospital Course: On the date of discharge, the patient reported feeling stable. The patient was found not to be in any acute distress, and no new abnormalities on physical examination. Further, the patient expressed appropriate understanding of, and agreement with, the discharge recommendations, medications, and plan. Time spent 37 mins #Laceration left palm - s/p stiches in ED #Fall #Right lower extremity pain patient was evaluated by PT/OT who recommended outpatient follow up as needed, patient randy discharged with pain control meds, patient counseled on activity as tolerated and fall precautions Exam Data for Last 24 hours Vital signs and Labs for Last 24 Hours: Temp Pulse Resp BP Pulse Ox O2 Del Method 98.0 F 84 18 136/78 96 Room Air 10/31/23 07:41 10/31/23 07:41 10/31/23 07:41 10/31/23 07:41 10/31/23 07:41 10/31/23 09:53 Laboratory Results - last 24 hr 10/31/23 03:30: Urine Color Yellow, Urine Appearance Cloudy, Urine pH 6.0, Ur Specific [place] 1.025, Urine Protein Trace, Urine Glucose (UA) Negative, Urine Ketones Negative, Urine Blood Negative, Urine Nitrate Positive, Urine Bilirubin Negative, Urine Urobilinogen 0.2, Ur Leukocyte Esterase 1+ A, Urine RBC None, Urine WBC 50-100, Ur Squamous Epith Cells 10-20, Urine Bacteria 2+, Urine Mucus 1+ I & O for Last 24 hours: Intake & Output 10/28/23 10/29/23 10/30/23 10/31/23 23:59 23:59 23:59 23:59 Intake Total 1355 / 1355 Output Total 0 / 0 Balance 1355 / 1355 Weight 129.274 kg 129.228 kg Constitutional Constitutional: no acute distress *Routine HEENT Exam Head: Present normocephalic Eye: Present EOMI and PERRL ENT: Present mucous membranes moist *Routine Neck Exam Neck: Present supple; Absent lymphadenopathy *Routine Respiratory Exam Respiratory: Present CTA bilaterally *Routine Cardiovascular Exam Cardiovascular: Present RRR *Routine Abdominal Exam Abdominal: Present soft and normoactive bowel sounds; Absent tenderness *Routine Extremities Exam Extremities: Absent cyanosis, clubbing or edema Comments: R knee swelling and Left hand covered in dressing *Routine Skin Exam Skin: Present warm; Absent rash *Routine Neurological Exam Neurological: Present alert and oriented X3 Results Data Completed and Pending Labs on day of discharge: Labs from last 24 hours 10/31/23 03:30 Urine Color Yellow Urine Appearance Cloudy Urine pH 6.0 Ur Specific [place] 1.025 Urine Protein Trace Urine Glucose (UA) Negative Urine Ketones Negative Urine Blood Negative Urine Nitrate Positive Urine Bilirubin Negative Urine Urobilinogen 0.2 Ur Leukocyte Esterase 1+ A Urine RBC None Urine WBC 50-100 Ur Squamous Epith Cells 10-20 Urine Bacteria 2+ Urine Mucus 1+ DS: Diagnosis Discharge Diagnosis (1) Laceration of left palm: Status: Acute Code(s): S61.412A - Laceration without foreign body of left hand, initial encounter Qualifiers: Encounter type: initial encounter Qualified Code(s): S61.412A - Laceration without foreign body of left hand, initial encounter (2) Fall: Status: Acute Code(s): W19.XXXA - Unspecified fall, initial encounter Qualifiers: Encounter type: initial encounter Qualified Code(s): W19.XXXA - Unspecified fall, initial encounter (3) Right leg pain: Status: Acute Code(s): M79.604 - Pain in right leg Meds Home Medications and Allergies Home Medications Medication Instructions Recorded Confirmed Type celecoxib 100 mg capsule (Celebrex) 100 mg PO BID #60 caps 09/22/23 10/30/23 Rx levothyroxine 300 mcg tablet 300 mcg PO DAILY 10/30/23 10/30/23 History oxycodone-acetaminophen 7.5 mg-325 1 tab PO Q6HP PRN Breakthru Severe 10/31/23 Rx mg tablet Pain (7-10) 2 days #8 tabs ropinirole 4 mg tablet 4 mg PO TID 10/31/23 10/31/23 History New Prescriptions to Start Prescriptions: oxycodone-acetaminophen Jose Brown Allergies Allergy/AdvReac Type Severity Reaction Status Date / Time No Known Drug Allergies Allergy Unknown Verified 10/30/23 21:05 [NKDA] Discharge Plan Disposition Patient Disposition: Home, Self-Care Condition: Good Follow up Plan Follow up with: Sarmad Ruiz MD [Staff Physician] - Enter time for follow up (please call for new patient appointment) Darin Villeda DO [Staff Physician] - 11/04/23 2:00 pm Prescriptions/Medication Reconciliation: New oxycodone-acetaminophen 7.5-325 mg Tablet 1 tab PO Q6HP PRN (Reason: Breakthru Severe Pain (7-10)) 2 Days Qty: 8 0RF Continued celecoxib [Celebrex] 100 mg capsule 100 mg PO BID Qty: 60 0RF levothyroxine 300 mcg tablet 300 mcg PO DAILY Patient Comments: TAKE ONE TABLET BY MOUTH EVERY DAY ropinirole 4 mg tablet 4 mg PO TID Patient Comments: TAKE ONE TABLET BY MOUTH THREE TIMES DAILY Problem Reconciliation Problems Reviewed?: Yes Patient Discharge Instructions ACTIVITY: Ambulate as tolerated DIET: continue same diet Patient Instructions: How to Care for a Laceration After Repair, DI for Urinary Tract Infection (UTI), How to Prevent Falls Providers Primary Care Provider: Provider,Referral Admit Provider: Jose Brown Attending Provider: Jose Brown
--- NOTE | 2023-11-03 17:02 | CARE MANAGER ---
Spoke with patient regarding discharge. She states she is doing better. She is aware of follow up appointment with Dr. Villeda. She is also going to schedule her own follow up appointment with her PCP in [place] as that is where she leaves. She does not wish to have home health services as recommended by PT but will follow up if she decides she wants them. Denies questions or concerns at this time. KENIA Lorenzo
== END 2023-10-31 16:22 | disposition home or self-care (01) ==
LOC: ER 20:31 → 2ND 20:38
PROVIDERS: Nurse Practitioner Acute Care; Admitting Provider Internal Medicine; Emergency Provider Emergency Medicine; Visit Provider Internal Medicine
DX: S61.412A Laceration without foreign body of left hand, initial encounter (principal); M79.604 Pain in right leg; Z79.899 Other long term (current) drug therapy; Z23 Encounter for immunization; M17.12 Unilateral primary osteoarthritis, left knee; W01.0XXA Fall on same level from slipping, tripping and stumbling without subsequent striking against object, initial encounter; Y92.018 Other place in single-family (private) house as the place of occurrence of the external cause
CPT/HCPCS: 12002; 73130; 73562; 73700; 81001; 87086; 87088; 90471; 90715; 97161; 99285; G0378; J0696

== ENCOUNTER 2023-11-27 10:26 | Outpatient (POV) | payer MEDICARE, SELFPAY ==
[2023-11-27 10:42] VITALS: BP 153/69; PULSE 98; RESP 18; O2SAT 97; BMI 42.0
--- NOTE | 2023-11-27 10:47 | EXP.PAIN.SOA ---
[facility] Disclaimer: The information contained in this section may have been updated after the patient was seen, as this information can be updated by other users. Medical History Hypothyroidism Restless leg syndrome Osteoarthritis, knee LEFT Family History Other Unknown family medical history Social History Smoking Status: Never smoker alcohol intake: never substance use type: denies use current occupational status: retired Travel in the last 8 weeks: None caffeine: No PM Subjective & Objective Subjective Subjective:: Patient is a pleasant 63-year-old female who presents today for medication refill and follow-up. Today she rates her pain a 3 out of 10. Patient does state from our last visit she did end up having a fall where she tripped on her patio landing on her right knee and left hand. Patient states that thankfully she did not end up having anything fractured however her knee did swell quite a bit and she ended up having to have 14 stitches in the palm of her left hand. Patient states that this is still trying to heal. Patient does also state that she has officially moved to [place] and that she is planning on selling her house here within the next couple of weeks. Patient states that she is hoping to set up care with a primary care closer to her new home. Patient is currently managed with Celebrex 100 mg twice a day. She denies any side effects from this medication. Her Shalom has been reviewed and is appropriate. Review of Systems: General: No recent weight changes, no fever, no sleep disturbances Respiratory: No cough, no shortness of air, no recurring pulmonary infections Cardiovascular/peripheral vascular: No chest pain, no palpitations, no edema, no shortness of breath Gastrointestinal: No new onset incontinence, normal bowel movements reported Genitourinary: No new onset incontinence Musculoskeletal: Right knee pain, left palm pain Psychiatric: [Normal mood/affect] Neurological: [Denies weakness in extremities], [denies balance issues] Pain at rest (0-10 scale): 3 Objective Objective:: Physical Exam: General: Alert and oriented x3, no acute distress, pleasant and cooperative Lungs: Respirations even and unlabored, symmetrical chest expansion Eyes: PERRL Musculoskeletal: Flexion and extension of right knee somewhat guarded secondary to pain, [antalgic gait noted] Neurological: Speech clear, no gross sensory deficit Has patient had previous pain injection?: No Conservative treatment options previously tried: NSAIDS Length of treatment: Longer than 6 weeks Meds Home Medications and Allergies Home Medications Medication Instructions Recorded Confirmed Type celecoxib 100 mg capsule (Celebrex) 100 mg PO BID #60 caps 09/22/23 11/27/23 Rx levothyroxine 300 mcg tablet 300 mcg PO DAILY 10/30/23 11/27/23 History oxycodone-acetaminophen 7.5 mg-325 1 tab PO Q6HP PRN Breakthru Severe 10/31/23 11/27/23 Rx mg tablet Pain (7-10) 2 days #8 tabs ropinirole 4 mg tablet 4 mg PO TID 10/31/23 11/27/23 History New Prescriptions to Start Prescriptions: Allergies Allergy/AdvReac Type Severity Reaction Status Date / Time No Known Drug Allergies Allergy Unknown Verified 11/19/23 11:35 [NKDA] Assessment and Plan *Assessment and plan (1) Left knee pain: Status: Acute Qualifiers: Chronicity: acute Qualified Code(s): M25.562 - Pain in left knee Category: Medical Code(s): M25.562 - Pain in left knee (2) Right leg pain: Status: Acute Category: Medical Code(s): M79.604 - Pain in right leg (3) Laceration of left palm: Status: Acute Qualifiers: Encounter type: initial encounter Qualified Code(s): S61.412A - Laceration without foreign body of left hand, initial encounter Category: Medical Code(s): S61.412A - Laceration without foreign body of left hand, initial encounter Plan I will refill the patient's Celebrex and provide a 6-month supply of this medication. I have counseled the patient that the [place] location would be the closer office for her since she now lives in [place]. I have discussed with the patient that I will call her from this office to give her her 6-month follow-up appointment and that if she needs a sooner to call. Patient is agreeable to this plan of care. Patient has been instructed to contact the clinic with any concerns before the next appointment. Dr. Marsh has reviewed this note and agrees with this plan of care. This note was dictated using voice recognition software and make contain errors or omissions.
== END 2023-11-27 23:59 | disposition home or self-care (01) ==
PROVIDERS: Visit Provider Nurse Practitioner Family
DX: M25.562 Pain in left knee (principal); M79.604 Pain in right leg; S61.412A Laceration without foreign body of left hand, initial encounter
CPT/HCPCS: 99212; G0463